=== PATIENT | female | born 2000 | race African-American/Black ===

== ENCOUNTER 2023-01-21 19:45 | Inpatient (IN) | payer OTHER ==
[~2023-01-21] VITALS: Ht 162.6 cm; Wt 56.7 kg
[2023-01-21 20:30] VITALS: BP_SYST 131; PULSE 88; RESP 18; TEMP 98.2; O2SAT 100
[2023-01-21 21:06] LABS: BILIRUBIN,URINE 1+ (NEGATIVE); BLOOD, URINE 3+ (NEGATIVE); CLARITY/URINE CLEAR (CLEAR); COLOR,URINE YELLOW (YELLOW); GLUCOSE,URINE NEGATIVE (NEGATIVE); KETONES,URINE TRACE (NEGATIVE); LEUKOCYTE ESTERASE ,URINE TRACE (NEGATIVE); NITRITE, URINE NEGATIVE (NEGATIVE); PROTEIN URINE NEGATIVE (NEGATIVE); UROBILINOGEN,URINE 0.2 (0.2-1.0)
[2023-01-21 22:13] LABS: BACTERIA,URINE RARE /HPF (None Seen)
[2023-01-21] MEDS ORDERED: MORPHINE 4 MG INJ. 4 MG/ML VIAL IVP ONE (22:45)
[2023-01-21] MEDS ORDERED: KETOROLAC TROMETHAMINE 30 MG VIAL IVP ONE (22:45)
[2023-01-21] MEDS ORDERED: NACL 0.9% 1,000 ML IV ONE (22:45)
[2023-01-21] MEDS ORDERED: cefTRIAXone 1 GM IVPB PREMIX 50 ML IV ONE (22:45)
[2023-01-22 00:16] LABS: BASOPHILS % (AUTO) 0.4 % (0.0-2.0); EOSINOPHILS # (AUTO) 0.1 K/uL (0.0-0.4); EOSINOPHILS % (AUTO) 1.6 % (0.0-4.0); HEMATOCRIT 38.5 % (36-48); HEMOGLOBIN 12.9 g/dL (12.0-16.0); LYMPHOCYTES # (AUTO) 2.6 K/uL (1.0-5.5); LYMPHOCYTES % (AUTO) 31.6 % (20.5-51.5); MEAN CORPUSCULAR HEMOGLOBIN 30 pg (27-31); MEAN CORPUSCULAR HGB CONC 34 % (32-36); MEAN CORPUSCULAR VOLUME 90 fL (79.0-98.0); MONOCYTES # (AUTO) 0.6 K/uL (0.0-1.0); MONOCYTES % (AUTO) 6.8 % (1.7-9.3); NEUTROPHILS # (AUTO) 4.9 K/uL (1.8-7.7); NEUTROPHILS % (AUTO) 59.6 % (40.0-70.0); PLATELET COUNT (AUTO) 300 K/uL (130-430); RED BLOOD CELL COUNT(AUTO) 4.29 MIL/uL (4.2-6.2); RED CELL DISTRIBUTION WIDTH 13.3 % (9.0-15.0); WHITE BLOOD COUNT (AUTO) 8.2 K/uL (4.8-10.8)
[2023-01-22 00:51] LABS: CALCIUM 9.9 mg/dL (8.4-11.0); CREATININE 0.77 mg/dL (0.55-1.30); POTASSIUM 3.3 mmol/L (3.5-5.1)
[2023-01-22 00:56] LABS: TOTAL BILIRUBIN 0.2 mg/dL (0.0-1.0)
[2023-01-22] MEDS: NACL 0.9% 1,000 ML IV SCH ×3 (01:45→23:01)
[2023-01-22] MEDS ORDERED: ACETAMINOPHEN 325 MG TABLET PO PRN (01:45)
[2023-01-22] MEDS ORDERED: MORPHINE 4 MG INJ. 4 MG/ML VIAL IVP PRN ×2 (01:45→07:45)
[2023-01-22] MEDS ORDERED: MORPHINE 2 MG/ML INJ. SYRINGE IVP PRN (01:45)
[2023-01-22] MEDS ORDERED: cefTRIAXone 1 GM IVPB PREMIX 50 ML IV ONE (02:45)
[2023-01-22] MEDS ORDERED: KCL IV ONE ×2 (05:45)
[2023-01-22] MEDS ORDERED: KCL 10 mEq in 50 mL (PREMIX) 100 ML IV ONE (06:01)
[2023-01-22] MEDS ORDERED: MIDAZOLAM HCL 2 MG/2 ML VIAL (VERSED) ONE (07:19)
[2023-01-22] MEDS ORDERED: fentaNYL CITRATE/PF 100 MCG/2 ML AMP ONE (07:19)
[2023-01-22] MEDS ORDERED: MORPHINE 4 MG INJ. 4 MG/ML VIAL ONE (07:20)
[2023-01-22 07:38] LABS: HCG,QUAL RESULT NEGATIVE (NEGATIVE)
[2023-01-22] MEDS ORDERED: MEPERIDINE HCL/PF 25 MG/ML DISP.SYRIN IVP PRN (07:45)
[2023-01-22] MEDS ORDERED: ONDANSETRON HCL 4 MG/2 ML VIAL IVP PRN (07:45)
[2023-01-22] MEDS ORDERED: LR 1,000 ML IV SCH (07:45)
[2023-01-22] MEDS ORDERED: DESFLURANE 15 MIN GAS INH ONE (08:49)
[2023-01-22] MEDS ORDERED: BUPIVACAINE /PF 0.25% 30 ML VIAL INJ ONE (08:49)
[2023-01-22] MEDS ORDERED: LR 1,000 ML IV.SOLN IV ONE (08:49)
[2023-01-22] MEDS ORDERED: ROCURONIUM BROMIDE 10 MG/ML (ZEMURON) ONE (08:49)
[2023-01-22] MEDS ORDERED: NS IRRIG SOLN 1000 ML IR ONE (08:49)
[2023-01-22] MEDS ORDERED: SUCCINYLCHOLINE CHLORIDE 20 MG/ML(QUELICIN) ONE (08:49)
[2023-01-22] MEDS ORDERED: PROPOFOL 200MG/ 20ML VIAL (DIPRIVAN) IV ONE (08:49)
[2023-01-22] MEDS ORDERED: WATER FOR IRRIGATION,STERILE 1,000 ML IRRIG.SOLN IR ONE (08:49)
[2023-01-22] MEDS ORDERED: DEXAMETHASONE SOD PHOSPHATE 4 MG/ML VIAL ONE (08:49)
[2023-01-22] MEDS ORDERED: NS 1000 ML IV.SOLN IV ONE ×2 (08:49)
[2023-01-22] MEDS ORDERED: ONDANSETRON HCL 4 MG/2 ML VIAL ONE (08:49)
[2023-01-22] MEDS ORDERED: CEFAZOLIN 1 GM IVPB PREMIX 50 ML IV ONE (08:49)
[2023-01-22] MEDS ORDERED: HYDROmorphone 1 MG/ML INJ. CARTRIDGE ONE (09:11)
[2023-01-22] MEDS: HYDROmorphone 1 MG/ML INJ. CARTRIDGE IVP PRN ×2 (09:15→09:30)
[2023-01-22 10:08] LABS: BASOPHILS % (AUTO) 0.2 % (0.0-2.0); EOSINOPHILS # (AUTO) 0.1 K/uL (0.0-0.4); EOSINOPHILS % (AUTO) 0.8 % (0.0-4.0); HEMATOCRIT 34.3 % (36-48); HEMOGLOBIN 11.7 g/dL (12.0-16.0); LYMPHOCYTES % (AUTO) 7.1 % (20.5-51.5); MEAN CORPUSCULAR HEMOGLOBIN 30 pg (27-31); MEAN CORPUSCULAR HGB CONC 34 % (32-36); MEAN CORPUSCULAR VOLUME 89 fL (79.0-98.0); MONOCYTES # (AUTO) 0.3 K/uL (0.0-1.0); MONOCYTES % (AUTO) 2.2 % (1.7-9.3); NEUTROPHILS # (AUTO) 12.3 K/uL (1.8-7.7); NEUTROPHILS % (AUTO) 89.7 % (40.0-70.0); PLATELET COUNT (AUTO) 246 K/uL (130-430); RED BLOOD CELL COUNT(AUTO) 3.86 MIL/uL (4.2-6.2); RED CELL DISTRIBUTION WIDTH 13.2 % (9.0-15.0); WHITE BLOOD COUNT (AUTO) 13.7 K/uL (4.8-10.8)
[2023-01-22 10:36] LABS: CALCIUM 8.4 mg/dL (8.4-11.0); CREATININE 0.55 mg/dL (0.55-1.30); POTASSIUM 4.1 mmol/L (3.5-5.1); TOTAL BILIRUBIN 0.2 mg/dL (0.0-1.0); TOTAL PROTEIN, SERUM 6.3 g/dL (6.4-8.3)
[2023-01-22 11:21] LABS: TOTAL PROTEIN, SERUM 8.4 g/dL (6.4-8.3)
[2023-01-22 14:19] VITALS: BP_SYST 122; PULSE 84; RESP 16; TEMP 98.2; O2SAT 100
[2023-01-22 16:00] VITALS: BP_SYST 122; PULSE 79; RESP 18; TEMP 98.6; O2SAT 99
[2023-01-22 20:00] VITALS: BP_SYST 127; PULSE 75; RESP 18; TEMP 97.9; O2SAT 100
[2023-01-22] MEDS ORDERED: cefTRIAXone 1 GM IVPB PREMIX 50 ML IV SCH (21:00)
[2023-01-22 22:31] VITALS: O2SAT 100
[2023-01-23] VITALS (7 sets, daily range): BP systolic 120–127; PULSE 75–80; RESP 16–18; TEMP 97.9–99.9; O2SAT 99–100
[2023-01-23 06:23] LABS: BASOPHILS % (AUTO) 0.2 % (0.0-2.0); EOSINOPHILS % (AUTO) 0.2 % (0.0-4.0); HEMATOCRIT 33.6 % (36-48); HEMOGLOBIN 11.2 g/dL (12.0-16.0); LYMPHOCYTES # (AUTO) 1.8 K/uL (1.0-5.5); LYMPHOCYTES % (AUTO) 17.4 % (20.5-51.5); MEAN CORPUSCULAR HEMOGLOBIN 30 pg (27-31); MEAN CORPUSCULAR HGB CONC 33 % (32-36); MEAN CORPUSCULAR VOLUME 91 fL (79.0-98.0); MONOCYTES # (AUTO) 0.8 K/uL (0.0-1.0); MONOCYTES % (AUTO) 7.5 % (1.7-9.3); NEUTROPHILS # (AUTO) 7.5 K/uL (1.8-7.7); NEUTROPHILS % (AUTO) 74.7 % (40.0-70.0); PLATELET COUNT (AUTO) 268 K/uL (130-430); RED BLOOD CELL COUNT(AUTO) 3.71 MIL/uL (4.2-6.2); RED CELL DISTRIBUTION WIDTH 13.6 % (9.0-15.0); WHITE BLOOD COUNT (AUTO) 10.1 K/uL (4.8-10.8)
[2023-01-23 07:04] LABS: CALCIUM 8.3 mg/dL (8.4-11.0); CREATININE 0.53 mg/dL (0.55-1.30); POTASSIUM 3.9 mmol/L (3.5-5.1); TOTAL BILIRUBIN 0.3 mg/dL (0.0-1.0); TOTAL PROTEIN, SERUM 6.5 g/dL (6.4-8.3)
[2023-01-23] MEDS: NACL 0.9% 1,000 ML IV SCH (08:40)
[2023-01-23] MEDS ORDERED: AMOX-423 PO (12:45)
== END 2023-01-23 17:41 | disposition home or self-care (01) | DRG 399 ==
LOC: SED 19:45 → SMU 01-22 01:44
PROVIDERS: ADMIT Family Medicine; ATTEND Family Medicine
PROC: 0DTJ4ZZ Resection of Appendix, Percutaneous Endoscopic Approach (ICD-10-PCS; principal; 2023-01-22 07:40)
DX: K37 Unspecified appendicitis (principal); E87.6 Hypokalemia; D72.829 Elevated white blood cell count, unspecified
CPT/HCPCS: 36415; 76376; 80053; 81000; 81001; 81015; 83605; 84703; 85025; 87040; 87086; 88304; 99285; J0330; J0690; J0696; J1100; J1170; J2270; J2405; J2704; J3010; J3465; J3480; J3490; J7030; J7120